=== PATIENT | female | born 1970 | race Caucasian/White ===

== ENCOUNTER 2016-10-19 16:15 | Emergency (ER) | payer MEDICAID ==
[2016-10-19] MEDS ORDERED: HYDROmorphone 1 MG/ML Syringe IVPUSH ONE (16:53)
[2016-10-19] MEDS ORDERED: Ondansetron 4 MG/2 ML SDV IVPUSH ONE (16:54)
[2016-10-19] MEDS ORDERED: Sodium Chloride 0.9% 1,000 ML IV SCH (17:00)
[2016-10-19] MEDS ORDERED: Sodium Chloride 0.9% 10 ML Syringe FLUSH PRN (17:46)
[2016-10-19] MEDS ORDERED: Iopamidol 612 MG/ML 150 ML Bottle IV PRN (17:46)
[2016-10-19 18:44] VITALS: BP 155/74
--- NOTE | 2016-10-19 19:40 | EDM.PDOC ---
ED HPI GI/ABDOMINAL - General Chief Complaint: Abdominal Pain Stated Complaint: ILLNESS Time Seen by Provider: 10/19/16 16:50 Source: Reports: Patient, Family, RN notes reviewed History Limitations: Reports: No limitations - History of Present Illness INITIAL COMMENTS - FREE TEXT/NARRATIVE: Patient originally seen by Dr. Overton for evaluation when she presented emergency department I took over care at 1800, she states that she had epigastric pain approximately one hour after eating has had pain now for 4 hours was provided half milligram of Dilaudid which did provide relief for her she has a history of initially gastric sleeve and duodenal switch surgery please see Dr. Overton's note for details on H&P, - Related Data Allergies/ADRs: Allergies Allergy/AdvReac Type Severity Reaction Status Date / Time cyclobenzaprine HCl Allergy Hives Verified 09/20/13 11:01 [From Flexeril] hydrocodone bitartrate Allergy Itching Verified 09/20/13 11:01 [From Vicodin] Home Meds: Home Meds Gabapentin [Neurontin] 300 mg PO BID 04/07/13 [History] DULoxetine [Cymbalta] 30 mg PO DAILY 10/19/16 [History] DULoxetine [Cymbalta] 60 mg PO DAILY 10/19/16 [History] Estradiol 0.5 mg PO DAILY 10/19/16 [History] HYDROmorphone HCl [Dilaudid] 2 mg PO Q3HR 10/19/16 [History] Meloxicam [Mobic] 15 mg PO DAILY 10/19/16 [History] Methocarbamol [Robaxin-750] 750 mg PO BID 10/19/16 [History] Rifampin 300 mg PO DAILY 10/19/16 [History] hydrOXYzine HCl [Atarax] 25 mg PO TID 10/19/16 [History] medroxyPROGESTERone [Provera] 10 mg PO DAILY 10/19/16 [History] oxyCODONE 5 mg PO Q3HR PRN 10/19/16 [History] Past Medical History Musculoskeletal History: Reports: Arthritis - Past Surgical History GI Surgical History: Reports: Bariatric procedure Other GI Surgeries/Procedures: GASTRIC SLEEVE 11/2012 Musculoskeletal Surgical History: Reports: Hip replacement Other Musculoskeletal Surgeries/Procedures:: RIGHT HIP REPLACEMENT 08/23/16, CLEAN OUT AND REPLACEMENT 08/25/16,CLOSURE 08/30/16 Social & Family History - Tobacco Use Smoking Status *Q: Never Smoker Second Hand Smoke Exposure: No - Caffeine Use Caffeine Use: Reports: Coffee - Alcohol Use Days Per Week of Alcohol Use: 0 - Recreational Drug Use Recreational Drug Use: No ED ROS GENERAL - Review of Systems Review Of Systems: Unable To Obtain Constitutional: Reports: no symptoms Respiratory: Reports: No Symptoms Cardiovascular: Reports: No symptoms GI/Abdominal: Reports: Abdominal pain, Nausea. Denies: Constipation, Diarrhea, Vomiting ED EXAM, GI/ABD - Physical Exam Exam: See Below Exam Limited By: No limitations General Appearance: alert, WD/WN, no apparent distress Respiratory/Chest: no respiratory distress GI/Abdominal: soft, tenderness (Epigastric region) Course - Vital Signs Last Recorded V/S: Last Vital Signs Temp 96.1 F 10/19/16 16:44 Pulse 86 10/19/16 18:43 Resp 20 10/19/16 18:43 BP 155/74 H 10/19/16 18:43 Pulse Ox 93 L 10/19/16 18:43 - Orders/Labs/Meds Orders: Active Orders 24 hr Category Date Time Status EKG Documentation Completion [RC] ASDIRECTED Care 10/19/16 16:52 Active Ready for Discharge [RC] PER UNIT ROUTINE Care 10/19/16 19:31 Active Abdomen Pelvis w Cont [CT] Stat Exams 10/19/16 16:54 Taken Chest 1V Frontal [CR] Stat Exams 10/19/16 16:51 Taken Sodium Chloride 0.9% [Normal Saline] 1,000 ml Med 10/19/16 17:00 Active IV ASDIRECTED EKG 12 Lead [EK] Stat Ther 10/19/16 16:51 Ordered Medication Orders Sodium Chloride (Normal Saline) 1,000 mls @ 150 mls/hr IV ASDIRECTED VIVIAN Last Admin: 10/19/16 17:20 Dose: 150 mls/hr Labs: Laboratory Tests 10/19/16 10/19/16 10/19/16 Range/Units 16:51 16:51 16:51 WBC 9.0 (4.5-11.0) K/uL RBC 4.23 (3.30-5.50) M/uL Hgb 12.1 (12.0-15.0) g/dL Hct 38.3 (36.0-48.0) % MCV 91 (80-98) fL MCH 29 (27-31) pg MCHC 32 (32-36) % Plt Count 299 (150-400) K/uL Neut % (Auto) 75 H (36-66) % Lymph % (Auto) 15 L (24-44) % [place] % (Auto) 7 H (2-6) % Eos % (Auto) 2 (2-4) % Baso % (Auto) 0 (0-1) % D-Dimer, Quantitative 2320 H (0.0-400.0) ng/mL Sodium 142 (140-148) mmol/L Potassium 3.9 (3.6-5.2) mmol/L Chloride 101 (100-108) mmol/L Carbon Dioxide 30 (21-32) mmol/L Anion Gap 10.9 (5.0-14.0) mmol/L BUN 11 (7-18) mg/dL Creatinine 0.9 (0.6-1.0) mg/dL Est Cr Clr Drug Dosing 72.34 mL/min Estimated GFR (MDRD) > 60 (>60) Glucose 149 H (74-106) mg/dL Lactic Acid (0.4-2.0) mmol/L Calcium 8.9 (8.5-10.1) mg/dL Total Bilirubin 0.8 (0.2-1.0) mg/dL AST 48 H (15-37) U/L ALT 16 (12-78) U/L Alkaline Phosphatase 70 (46-116) U/L Troponin I < 0.017 (0.000-0.056) ng/mL C-Reactive Protein 1.02 H (0.0-0.3) mg/dL Total Protein 7.8 (6.4-8.2) g/dL Albumin 3.4 (3.4-5.0) g/dL Globulin 4.4 H (2.3-3.5) g/dL Albumin/Globulin Ratio 0.8 L (1.2-2.2) Amylase 72 (25-115) U/L Lipase 181 (73-393) U/L Urine Color Urine Appearance Urine pH (4.5-8.0) Ur Specific [place] (1.008-1.030) Urine Protein (NEGATIVE) mg/dL Urine Glucose (UA) (NEGATIVE) mg/dL Urine Ketones (NEGATIVE) mg/dL Urine Occult Blood (NEGATIVE) Urine Nitrite (NEGATIVE) Urine Bilirubin (NEGATIVE) Urine Urobilinogen (NORMAL) mg/dL Ur Leukocyte Esterase (NEGATIVE) Urine RBC (0-5) Urine WBC (0-5) Ur Epithelial Cells Amorphous Sediment Urine Bacteria Urine Mucus 10/19/16 10/19/16 Range/Units 16:51 18:44 WBC (4.5-11.0) K/uL RBC (3.30-5.50) M/uL Hgb (12.0-15.0) g/dL Hct (36.0-48.0) % MCV (80-98) fL MCH (27-31) pg MCHC (32-36) % Plt Count (150-400) K/uL Neut % (Auto) (36-66) % Lymph % (Auto) (24-44) % [place] % (Auto) (2-6) % Eos % (Auto) (2-4) % Baso % (Auto) (0-1) % D-Dimer, Quantitative (0.0-400.0) ng/mL Sodium (140-148) mmol/L Potassium (3.6-5.2) mmol/L Chloride (100-108) mmol/L Carbon Dioxide (21-32) mmol/L Anion Gap (5.0-14.0) mmol/L BUN (7-18) mg/dL Creatinine (0.6-1.0) mg/dL Est Cr Clr Drug Dosing mL/min Estimated GFR (MDRD) (>60) Glucose (74-106) mg/dL Lactic Acid 1.4 (0.4-2.0) mmol/L Calcium (8.5-10.1) mg/dL Total Bilirubin (0.2-1.0) mg/dL AST (15-37) U/L ALT (12-78) U/L Alkaline Phosphatase (46-116) U/L Troponin I (0.000-0.056) ng/mL C-Reactive Protein (0.0-0.3) mg/dL Total Protein (6.4-8.2) g/dL Albumin (3.4-5.0) g/dL Globulin (2.3-3.5) g/dL Albumin/Globulin Ratio (1.2-2.2) Amylase (25-115) U/L Lipase (73-393) U/L Urine Color [place] Urine Appearance Clear Urine pH 5.0 (4.5-8.0) Ur Specific [place] 1.020 (1.008-1.030) Urine Protein Negative (NEGATIVE) mg/dL Urine Glucose (UA) Normal (NEGATIVE) mg/dL Urine Ketones 15 H (NEGATIVE) mg/dL Urine Occult Blood Negative (NEGATIVE) Urine Nitrite Negative (NEGATIVE) Urine Bilirubin Small (NEGATIVE) Urine Urobilinogen Normal (NORMAL) mg/dL Ur Leukocyte Esterase Negative (NEGATIVE) Urine RBC 0-5 (0-5) Urine WBC 0-5 (0-5) Ur Epithelial Cells Many Amorphous Sediment Not seen Urine Bacteria Few Urine Mucus Few Meds: Medications Generic Name Dose Route Start Last Admin Trade Name Freq PRN Reason Stop Dose Admin Sodium Chloride 1,000 mls @ 150 mls/hr 10/19/16 17:00 10/19/16 17:20 Normal Saline IV 150 mls/hr ASDIRECTED VIVIAN Administration Discontinued Medications Generic Name Dose Route Start Last Admin Trade Name Freq PRN Reason Stop Dose Admin Hydromorphone HCl 0.5 mg 10/19/16 16:53 10/19/16 17:20 Dilaudid IVPUSH 10/19/16 16:54 0.5 mg ONETIME ONE Administration Sodium Chloride 70 mls @ 3 mls/sec 10/19/16 17:46 10/19/16 18:00 Normal Saline IV 10/19/16 17:47 3 mls/sec ASDIRECTED ONE Administration Iopamidol 150 ml 10/19/16 17:46 10/19/16 18:00 Isovue-300 (61%) IV 10/19/16 17:47 150 ml . DIRECTED PRN Administration RADIOLOGY EXAM Ondansetron HCl 4 mg 10/19/16 16:54 10/19/16 17:20 Zofran IVPUSH 10/19/16 16:55 4 mg ONETIME ONE Administration Sodium Chloride 10 ml 10/19/16 17:46 10/19/16 18:00 Saline Flush FLUSH 10/19/16 17:47 10 ml . DIRECTED PRN Administration [id number] EXAM Departure - Departure Time of Disposition: 19:40 Disposition: Home, Self-Care 01 Condition: good Clinical Impression: Cholecystitis Referrals: Rakesh Castaneda MD [Physician] - (luisa november 05 ) Additional Instructions: Please keep your followup appointment with Dr. Castaneda, call return to the ED with worsening of symptoms - Assessment/Plan Plan: Assessment Acuity = acute Site and laterality = epigastric pain complicated patient with known history of gastric bypass surgery duodenal switch Etiology = suspicious for gallbladder involvement Manifestations = pain, nausea Location of injury = home Lab values = CBC unremarkable, d-dimer elevated at [id number] gout he has CRP mildly elevated 1.[address] scan of the abdomen shows markedly dilated gallbladder mild amount of fluid surrounding the gallbladder gallstones are present probably consistent with acute cholecystitis Plan I did consult Dr. Castaneda who kindly evaluated the patient in the emergency department she is set up for a cholecystectomy as an outpatient this following week Patient was in agreement with the plan all questions were answered, they were instructed to return to the emergency department or call for worsening symptoms. This note was dictated using [employer] voice recognition software please call with any questions.
--- NOTE | 2016-10-21 10:09 | CR ---
Chest 1V Frontal INDICATION: Left upper quadrant pain FINDINGS: Right PICC line with tip overlying the upper SVC. Heart size is accentuated by portable AP technique. AP portable chest x-ray otherwise negative.
--- NOTE | 2016-10-21 11:42 | CONS ---
DATE OF SERVICE: 10/20/2016 REFERRING PHYSICIAN: CONSULTING PHYSICIAN: Rakesh Castaneda MD REASON FOR CONSULTATION: Abdominal pain. HISTORY OF PRESENT ILLNESS: This is a pleasant 46-year-old female, who developed epigastric/right upper quadrant abdominal pain after eating greasy/fatty foods. This is an ongoing problem for her. This is the 2nd or 3rd attack. She has pain in the epigastric/right upper quadrant, which is 3 to 4/10, but has subsequently improved. PAST MEDICAL HISTORY: Chronic pain syndrome, bariatric status. The patient underwent a sleeve in 2012 performed by myself and converted to a duodenal switch. Gastroesophageal reflux disease, ACL tear, knee pain, depression, total hip repair, medial meniscus tear, obesity, chondromalacia of the patella, personality disorder, left knee scope. PAST SURGICAL HISTORY: As above. The patient also underwent a right total hip which was also infected recently (September 2016). SOCIAL HISTORY: She does not smoke. REVIEW OF SYSTEMS: GENERAL: The patient feels well comparatively. HEENT: No symptoms. CARDIOVASCULAR: No chest pain. RESPIRATORY: No shortness of breath. GASTROINTESTINAL: As above. GENITOURINARY: No dysuria. NEUROLOGIC: Alert and oriented x3. PSYCH: No gross depression. The remainder review of systems is reviewed and is negative. PHYSICAL EXAMINATION: VITAL SIGNS: Stable. HEENT: Pupils are equal. NECK: Supple. CARDIOVASCULAR: Regular rhythm and rate. RESPIRATORY: Lungs are clear to consultation bilaterally. ABDOMEN: Bowel sounds positive. Pain with palpation in the right upper quadrant/ epigastric region. EXTREMITIES: Full range of motion. Strength 5/5. NEUROLOGIC: Oriented x3. PSYCH: No gross depression. IMAGING: I did review the CT scan, which shows cholelithiasis and cholecystitis. ASSESSMENT AND PLAN: Cholecystitis. PLAN: The patient definitely needs her gallbladder out as she has right upper quadrant abdominal pain associated with diet and CT noted inflammation. However, this will be delayed until her infected hip is subsequently resolved. This will decrease her surgical risk. The plan will be, the patient will follow up on November [address] Dc for evaluation in the clinic. We did discuss the surgical process to a laparoscopic and open. The risks, benefits, alternatives, and limitations, including, but not limited to infection, bleeding, and perforation along with common bile duct injury, cystic duct leaks. She understands these risks and wishes to proceed. Rakesh Castaneda MD /[id number]
== END 2016-10-19 19:53 | disposition home or self-care (01) ==
LOC: JP.ED 16:15
DX: K81.9 Cholecystitis, unspecified (principal); Z88.5 Allergy status to narcotic agent; Z88.8 Allergy status to other drugs, medicaments and biological substances; Z79.899 Other long term (current) drug therapy; Z98.84 Bariatric surgery status; Z96.641 Presence of right artificial hip joint
CPT/HCPCS: 36415; 71010; 74177; 80053; 81001; 82150; 83605; 83690; 84484; 85025; 85379; 86140; 93005; 96361; 96374; 96375; 99285; J1170; J2405; J7030; J7040; J7050

== ENCOUNTER 2017-01-03 06:52 | Day surgery (SDC) | payer MEDICAID ==
[~2017-01-03 06:52] MED LIST: Bupivacaine 0.5%/EPINEPHrine 1:200,000 50 ML MDV ONE
[2017-01-03] MEDS ORDERED: Lidocaine 1% 50 ML MDV ONE (06:53)
[2017-01-03] MEDS ORDERED: Sodium Chloride 0.9% 1,000 ML IV SCH (07:30)
[2017-01-03] MEDS ORDERED: ceFAZolin 2 GM in Premix Bag 1 BAG IV ONE (08:15)
[2017-01-03] MEDS ORDERED: metroNIDAZOLE/Normal Saline 500 MG in Premix Bag 1 BAG IV ONE (08:15)
[2017-01-03] MEDS ORDERED: Succinylcholine/Normal Saline 200 MG/10 ML Syringe ONE (08:29)
[2017-01-03] MEDS ORDERED: Neostigmine Methylsulfate 1 MG/ML 5 ML Syringe ONE (08:29)
[2017-01-03] MEDS ORDERED: Rocuronium 50 MG/5 ML Vial ONE (08:29)
[2017-01-03] MEDS ORDERED: fentaNYL 250 MCG/5 ML SDV ONE (08:29)
[2017-01-03] MEDS ORDERED: Dexamethasone 4 MG/ML SDV ONE (08:29)
[2017-01-03] MEDS ORDERED: Ondansetron 4 MG/2 ML SDV ONE (08:29)
[2017-01-03] MEDS ORDERED: Propofol 200 MG/20 ML SDV ONE (08:29)
[2017-01-03] MEDS ORDERED: Ketorolac 60 MG/2 ML SDV ONE (10:03)
[2017-01-03] MEDS ORDERED: Bisacodyl 5 MG Tab PO PRN (10:19)
[2017-01-03] MEDS ORDERED: Docusate Sodium 100 MG Cap PO PRN (10:19)
[2017-01-03] MEDS ORDERED: Zolpidem 5 MG Tab PO PRN (10:19)
[2017-01-03] MEDS ORDERED: Promethazine 25 MG/ML SDV IM PRN (10:19)
[2017-01-03] MEDS ORDERED: diphenhydrAMINE 50 MG/ML SDV IVPUSH PRN (10:19)
[2017-01-03] MEDS ORDERED: Benzocaine/Cetylpyridinium/Menthol Lozenge MUCMEM PRN (10:19)
[2017-01-03] MEDS: Acetaminophen/oxyCODONE 325-10 MG Tab PO PRN ×3 (11:50→20:16)
[2017-01-04] MEDS: Acetaminophen/oxyCODONE 325-10 MG Tab PO PRN ×3 (00:15→09:45)
[2017-01-04 07:34] VITALS: BP 110/59
--- NOTE | 2017-01-05 10:02 | OR ---
DATE OF PROCEDURE: 01/03/2017 PROCEDURE PERFORMED: Laparoscopic cholecystectomy. PREOPERATIVE DIAGNOSES: 1. Cholelithiasis. 2. Cholecystitis. POSTOPERATIVE DIAGNOSES: 1. Cholelithiasis. 2. Cholecystitis. COMPLICATIONS: None. DRYING OVEN TENDER: None. ANESTHESIA: General/local. INDICATIONS FOR PROCEDURE: A 46-year-old female with clinically diagnosed cholelithiasis, cholecystitis. The risks, benefits, alternatives, and limitations, including, but not limited to, bleeding, infection, injury to abdominal structures such as bowel, bladder were explained to the patient. We also discussed the possibility of cystic duct leaks, common bile duct injuries, and open surgery. The patient understands these risks and wished to proceed. PROCEDURE IN DETAIL: The patient was placed in supine position. A supraumbilical curvilinear incision was made. A Veress needle was used to enter the abdomen without abnormality. The drop test was performed and the abdomen was subsequently insufflated. This was followed by an Optiview trocar which was entered without abnormality. An additional 10 and two 5 mm ports would also be entered under direct visualization. The cephalad was checked. The gallbladder was checked. The infundibulum was retracted superiorly, and the fundus was retracted inferolaterally. The patient was known to have very dense adhesions noted within the gallbladder fossa. Blunt dissection was performed. The cystic duct was possibly larger than a clip, and therefore, a blue load stapler would be used to transect the duct. Prior to this, a "clear view" of the gallbladder was obtained with a single pulsatile structure into the gallbladder, and a single non-pulsatile structure in the gallbladder. After transection of this associated structures, the remaining 1/3 of the gallbladder was removed off the gallbladder bed without difficulty. Minimal bleeding of the liver bed was controlled with electrocautery. The transection sites were inspected without abnormality. There was no evidence of bile leak. This was irrigated with approximately 500 mL of normal saline. The liver bed was reinspected for 1 minute for evidence of venous bleeding and low pressure and there was none. The patient was turned to remove the maximal amount of fluid. The entry site was inspected for enterotomy which there was none. The air was removed. The wounds were closed with 3-0 Vicryl and 4-0 Vicryl in interrupted running fashion after local anesthetic was applied and Dermabond was placed. The patient tolerated the procedure well. Rakesh Castaneda MD /[id number]
--- NOTE | 2017-01-05 10:43 | PN ---
DATE OF SERVICE: 01/04/2017 The patient underwent laparoscopic cholecystectomy yesterday per Dr. Castaneda. She was tentatively planned to be discharged home yesterday evening, but felt more comfortable staying overnight. She will be discharged home today with continuation of the discharge orders per Dr. Castaneda. She has had some drainage from one of the NANCY drain sites, and she will be given some gauze for that along with an extra binder in view that the present binder might get dirty. Paulo Hawley MD /[id number]
== END 2017-01-04 10:48 | disposition home or self-care (01) ==
LOC: JP.SDS 06:52 → JP.2SS 11:15 → JP.SDS 01-04 10:48
PROVIDERS: ATTEND Surgery
DX: K80.10 Calculus of gallbladder with chronic cholecystitis without obstruction (principal); K21.9 Gastro-esophageal reflux disease without esophagitis; E66.9 Obesity, unspecified; E11.9 Type 2 diabetes mellitus without complications; Z88.8 Allergy status to other drugs, medicaments and biological substances; Z98.84 Bariatric surgery status; Z98.890 Other specified postprocedural states; F32.9 Major depressive disorder, single episode, unspecified; Z79.899 Other long term (current) drug therapy
CPT/HCPCS: 36415; 47562; 80053; 85025; 85027; A9270; J0690; J1100; J1885; J2405; J2704; J3010; J7040; 88304

== ENCOUNTER 2018-04-16 09:53 | Emergency (ER) | payer MEDICAID ==
--- NOTE | 2018-04-16 10:29 | EDM.PDOC ---
ED HPI GENERAL MEDICAL PROBLEM - General Chief Complaint: Chest Pain Stated Complaint: MEDICAL [facility]IA [facility] Time Seen by Provider: 04/16/18 10:29 Source of Information: Reports: Patient History Limitations: Reports: No Limitations - History of Present Illness INITIAL COMMENTS - FREE TEXT/NARRATIVE: pt arrived by ambulance with rt sided chest pain The pain starts in her rt upper arm and goes to the rt chest. She has a past history of a infected pick line and she was treated for mrsa at that time . She is concerned about the fact that this pain is traveling in the same pattern as the pick line. . Onset: Today, Gradual Duration: Hour(s):, Getting Worse Location: Reports: Chest Associated Symptoms: Reports: Chest Pain, Other (pt was concerned about the recurrent infection in this area. ) Right Middle Chest Pain Score (Numeric/FACES): 4 - Related Data Allergies Allergy/AdvReac Type Severity Reaction Status Date / Time cyclobenzaprine HCl Allergy Hives Verified 01/03/17 07:23 [From Flexeril] Home Meds: Home Meds Gabapentin [Neurontin] 300 mg PO BID 04/07/13 [History] Meloxicam [Mobic] 15 mg PO DAILY 10/19/16 [History] Methocarbamol [Robaxin-750] 750 mg PO BID 10/19/16 [History] hydrOXYzine HCl [Atarax] 25 mg PO TID PRN 10/19/16 [History] medroxyPROGESTERone [Provera] 10 mg PO ASDIRECTED 10/19/16 [History] LORazepam 0.5 mg PO QID PRN 01/01/17 [History] cefaDROXil [Cefadroxil] 500 mg PO BID 01/01/17 [History] Past Medical History HEENT History: Reports: Allergic Rhinitis, Other (See Below) Other HEENT History: environmental allergies Cardiovascular History: Reports: Arrhythmia, Heart Murmur, Other (See Below) Other Cardiovascular History: heart murmur as child Respiratory History: Reports: Asthma, Bronchitis, Recurrent Gastrointestinal History: Reports: Cholelithiasis [employer] History: Reports: , Spontaneous Musculoskeletal History: Reports: Back Pain, Chronic, Fibromyalgia Neurological History: Reports: Migraines Psychiatric History: Reports: Anxiety, Depression Endocrine/Metabolic History: Reports: Diabetes, Type II, Obesity/BMI 30+ - Infectious Disease History Infectious Disease History: Reports: MRSA, Other (See Below) Other Infectious Disease History: mssa - Past Surgical History HEENT Surgical History: Reports: Oral Surgery GI Surgical History: Reports: Bariatric Procedure Female Surgical History: Reports: D&C Musculoskeletal Surgical History: Reports: Hip Replacement, Other (See Below) Other Musculoskeletal Surgeries/Procedures:: left knee ACL reconstruction Social & Family History - Tobacco Use Smoking Status *Q: Never Smoker - Caffeine Use Caffeine Use: Reports: Coffee, Soda, Tea - Recreational Drug Use Recreational Drug Use: No ED ROS GENERAL - Review of Systems Review Of Systems: See Below Constitutional: Reports: Other (pain in the rt upper arm and in the rt upper chest. ) HEENT: Reports: No Symptoms Respiratory: Reports: Other (pt has pain in her rt upper chest area. ) Cardiovascular: Reports: No Symptoms Endocrine: Reports: No Symptoms GI/Abdominal: Reports: No Symptoms : Reports: No Symptoms Musculoskeletal: Reports: No Symptoms Skin: Reports: No Symptoms ED EXAM, GENERAL - Physical Exam Exam: See Below Free Text/Narrative:: Pt arrived with pain in her rt upper chest and in the rt upper arm. Exam Limited By: No Limitations General Appearance: Alert, Mild Distress Ears: Normal TMs Nose: Normal Inspection Throat/Mouth: Normal Inspection Head: Atraumatic Neck: Normal Inspection Respiratory/Chest: No Respiratory Distress, Other (pt is having pain in rt upper chest. She is not tender to palpate. ) Cardiovascular: Regular Rate, Rhythm GI/Abdominal: Soft, Non-Tender (Female) Exam: Deferred Rectal (Female) Exam: Deferred Back Exam: Normal Inspection Extremities: Normal Inspection, Other ( No redness on the rt upper arm. ) Neurological: Alert, Oriented, Normal Cognition Course - Vital Signs Last Recorded V/S: Last Vital Signs Temp 37.3 C 04/16/18 10:07 Pulse 72 04/16/18 11:10 Resp 11 L 04/16/18 11:10 BP 135/60 04/16/18 11:10 Pulse Ox 96 04/16/18 11:10 - Orders/Labs/Meds Labs: Laboratory Tests 04/16/18 04/16/18 04/16/18 Range/Units 10:34 10:34 10:35 WBC 4.4 L (4.5-11.0) K/uL RBC 4.22 (3.30-5.50) M/uL Hgb 12.6 (12.0-15.0) g/dL Hct 38.5 (36.0-48.0) % MCV 91 (80-98) fL MCH 30 (27-31) pg MCHC 33 (32-36) % Plt Count 189 (150-400) K/uL Neut % (Auto) 69 H (36-66) % Lymph % (Auto) 23 L (24-44) % [place] % (Auto) 6 (2-6) % Eos % (Auto) 2 (2-4) % Baso % (Auto) 0 (0-1) % Sodium 142 (140-148) mmol/L Potassium 3.8 (3.6-5.2) mmol/L Chloride 107 (100-108) mmol/L Carbon Dioxide 25 (21-32) mmol/L Anion Gap 10.5 (5.0-14.0) mmol/L BUN 7 (7-18) mg/dL Creatinine 1.0 (0.6-1.0) mg/dL Est Cr Clr Drug Dosing 61.23 mL/min Estimated GFR (MDRD) 59 L (>60) Glucose 123 H (74-106) mg/dL Calcium 7.9 L (8.5-10.1) mg/dL Total Bilirubin 0.3 (0.2-1.0) mg/dL AST 22 (15-37) U/L ALT 18 (12-78) U/L Alkaline Phosphatase 51 (46-116) U/L Troponin I < 0.017 (0.000-0.056) ng/mL Total Protein 6.4 (6.4-8.2) g/dL Albumin 2.8 L (3.4-5.0) g/dL Globulin 3.6 H (2.3-3.5) g/dL Albumin/Globulin Ratio 0.8 L (1.2-2.2) Urine Color Yellow Urine Appearance Slightly cloudy Urine pH 5.0 (4.5-8.0) Ur Specific [place] 1.005 L (1.008-1.030) Urine Protein Negative (NEGATIVE) mg/dL Urine Glucose (UA) Normal (NEGATIVE) mg/dL Urine Ketones Negative (NEGATIVE) mg/dL Urine Occult Blood Negative (NEGATIVE) Urine Nitrite Negative (NEGATIVE) Urine Bilirubin Negative (NEGATIVE) Urine Urobilinogen Normal (NORMAL) mg/dL Ur Leukocyte Esterase Small (NEGATIVE) Urine RBC Not seen (0-5) Urine WBC 5-10 H (0-5) Ur Epithelial Cells Few Amorphous Sediment Not seen Urine Bacteria Not seen Urine Mucus Not seen Meds: Medications Discontinued Medications Generic Name Dose Route Start Last Admin Trade Name Freq PRN Reason Stop Dose Admin Ketorolac Tromethamine 60 mg 04/16/18 12:23 Toradol IM 04/16/18 12:24 ONETIME ONE - Re-Assessments/Exams Free Text/Narrative Re-Assessment/Exam: 04/16/18 12:38 pt had a chest xray which was neg. Her wbc was neg. Her trop was normal. no acute finding s in the ekg. Departure - Departure Time of Disposition: 12:24 Disposition: Home, Self-Care 01 Condition: Fair Clinical Impression: Right-sided chest pain Referrals: Senthil Oh MD [Primary Care Provider] - Forms: ED Department Discharge Care Plan Goals: moist heat to rt chest, encourage deep breathing.norco 5/325 q6h prn for pain # 6, no work today.
--- NOTE | 2018-04-16 11:19 | CR ---
Chest 2V HISTORY: pain in rt chest. COMPARISON: 10/19/2016 FINDINGS: Lungs appear clear and normally aerated. Heart size is upper limits of normal. No hilar or mediastina l abnormality is seen. No vascular redistribution or pleural fluid can be seen. Bony structures and s oft tissues are unremarkable. IMPRESSION: Heart size is upper limits of normal. No acute chest abnormality or significant interval change santos red with 10/19/2016.
[2018-04-16 11:32] VITALS: BP 135/60
[2018-04-16] MEDS ORDERED: Ketorolac 60 MG/2 ML SDV IM ONE (12:23)
== END 2018-04-16 12:44 | disposition home or self-care (01) ==
LOC: JP.ED 09:53
DX: R07.9 Chest pain, unspecified (principal); E11.9 Type 2 diabetes mellitus without complications; Z88.8 Allergy status to other drugs, medicaments and biological substances; Z79.899 Other long term (current) drug therapy
CPT/HCPCS: 36415; 71046; 71046-26; 80053; 81001; 84484; 85025; 96372; 99285-25; J1885

== ENCOUNTER 2020-01-12 20:13 | Emergency (ER) | payer MEDICAID ==
--- NOTE | 2020-01-12 20:34 | EDM.PDOC ---
<Deepika Jones - Last Filed: 01/12/20 20:34> ED HPI GENERAL MEDICAL PROBLEM - General Chief Complaint: Respiratory Problem Stated Complaint: COUGH Time Seen by Provider: 01/12/20 20:34 Source of Information: Reports: Patient - Related Data Allergies Allergy/AdvReac Type Severity Reaction Status Date / Time cyclobenzaprine HCl Allergy Hives Verified 01/12/20 21:05 [From Flexeril] Home Meds: Home Meds Gabapentin [Neurontin] 600 mg PO TID 04/07/13 [History] hydrOXYzine HCl [Atarax] 25 mg PO TID PRN 10/19/16 [History] cefaDROXiL [Cefadroxil] 500 mg PO BID 01/01/17 [History] Albuterol Sulfate [Proair Respiclick] 2 puff IH QID PRN 01/12/20 [History] Escitalopram [Lexapro] 20 mg PO DAILY 01/12/20 [History] Eszopiclone 1 tab PO BEDTIME 01/12/20 [History] Etonogestrel [Nexplanon] 1 dose IMPLANT ASDIRECTED 01/12/20 [History] Viking Carbonate 1 cap PO BEDTIME 01/12/20 [History] Propranolol [Inderal] 20 mg PO BID 01/12/20 [History] QUEtiapine Fumarate [Quetiapine Fumarate] 200 mg PO BEDTIME 01/12/20 [History] QUEtiapine [SEROquel] 0.05 - 1 tab PO ASDIRECTED PRN 01/12/20 [History] Rizatriptan Benzoate [Rizatriptan] 1 tab PO ASDIRECTED PRN 01/12/20 [History] lamoTRIgine 1 tab PO DAILY 01/12/20 [History] Past Medical History HEENT History: Reports: Allergic Rhinitis, Other (See Below) Other HEENT History: environmental allergies Cardiovascular History: Reports: Arrhythmia, Heart Murmur, Other (See Below) Other Cardiovascular History: heart murmur as child Respiratory History: Reports: Asthma, Bronchitis, Recurrent Gastrointestinal History: Reports: Cholelithiasis 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: , 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 Musculoskeletal History: Reports: Back Pain, Chronic, Fibromyalgia Neurological History: Reports: Migraines Psychiatric History: Reports: Anxiety, Depression Endocrine/Metabolic History: Reports: Diabetes, Type II, Obesity/BMI 30+ - Infectious Disease History Infectious Disease History: Reports: MRSA, Other (See Below) Other Infectious Disease History: mssa - Past Surgical History HEENT Surgical History: Reports: Oral Surgery GI Surgical History: Reports: Bariatric Procedure Female Surgical History: Reports: D&C Musculoskeletal Surgical History: Reports: Hip Replacement, Other (See Below) Other Musculoskeletal Surgeries/Procedures:: left knee ACL reconstruction Social & Family History - Family History Family Medical History: Noncontributory - Caffeine Use Caffeine Use: Reports: Coffee, Soda Course - Vital Signs Last Recorded V/S: Last Vital Signs Temp 97.1 F 01/12/20 21:07 Pulse 82 01/12/20 21:07 Resp 18 01/12/20 21:07 BP 152/83 H 01/12/20 21:07 Pulse Ox 97 01/12/20 21:07 - Orders/Labs/Meds Orders: Active Orders 24 hr Category Date Time Status RT Aerosol Therapy [RC] ASDIRECTED Care 01/12/20 21:48 Active Chest 2V [CR] Stat Exams 01/12/20 21:49 Taken CULTURE STREP A CONFIRMATION [RM] Stat Lab 01/12/20 22:00 Results STREP SCRN A RAPID W CULT CONF [RM] Stat Lab 01/12/20 22:00 Results Labs: Laboratory Tests 01/12/20 Range/Units 21:49 WBC 6.0 (4.5-11.0) K/uL RBC 4.92 (3.30-5.50) M/uL Hgb 14.7 D (12.0-15.0) g/dL Hct 45.5 (36.0-48.0) % MCV 93 (80-98) fL MCH 30 (27-31) pg MCHC 32 (32-36) % Plt Count 212 (150-400) K/uL Neut % (Auto) 64 (36-66) % Lymph % (Auto) 24 (24-44) % [place] % (Auto) 9 H (2-6) % Eos % (Auto) 2 (2-4) % Baso % (Auto) 1 (0-1) % Meds: Medications Discontinued Medications Generic Name Dose Route Start Last Admin Trade Name Freq PRN Reason Stop Dose Admin Albuterol/Ipratropium 3 ml 01/12/20 21:48 01/12/20 23:26 Duoneb 3.0-0.5 Mg/3 Ml NEB 01/12/20 21:49 Not Given ONETIME ONE Departure - Departure Disposition: Home, Self-Care 01 Clinical Impression: Bronchitis, acute - Discharge Information Instructions: Acute Bronchitis, Adult, [id number] Referrals: Alexandria Trevizo CNM [Primary Care Provider] - Forms: ED Department Discharge Additional Instructions: Finish all your antibiotic even if you start to feel better. Use the cough syrup at night to help you sleep but not during the day as you want to cough and clear your sputum. Make sure you stay hydrated to help with your cough and sputum. Your x-ray did not show any evidence of pneumonia. Use you albuterol inhaler three to four times a day over the next 3 to 4 days to help with the cough. Follow up with your PCP if not better in 3-5 days. Call or come back to the ER with any worsening of symptoms, chest pains, difficulty catching your breath, or any other concerns. Sepsis Event Note (ED) - Focused Exam Vital Signs: Vital Signs Temp Pulse Resp BP Pulse Ox 01/12/20 21:07 97.1 F 82 18 152/83 H 97 01/12/20 20:41 97.1 F 82 18 152/83 H 97 - My Orders Last 24 Hours: My Active Orders 01/12/20 21:48 RT Aerosol Therapy [RC] ASDIRECTED 01/12/20 21:49 Chest 2V [CR] Stat 01/12/20 22:00 CULTURE STREP A CONFIRMATION [RM] Stat STREP SCRN A RAPID W CULT CONF [RM] Stat - Assessment/Plan Last 24 Hours: My Active Orders 01/12/20 21:48 RT Aerosol Therapy [RC] ASDIRECTED 01/12/20 21:49 Chest 2V [CR] Stat 01/12/20 22:00 CULTURE STREP A CONFIRMATION [RM] Stat STREP SCRN A RAPID W CULT CONF [RM] Stat <Ester Cuenca - Last Filed: 01/13/20 02:30> ED HPI GENERAL MEDICAL PROBLEM - General Source of Information: Reports: Patient, RN History Limitations: Reports: No Limitations - History of Present Illness INITIAL COMMENTS - FREE TEXT/NARRATIVE: Lelia is a 49 yo female that comes to the ED with a 2 days history of a productive cough getting worse in the last 2 hours. She describes it as constant and aggravates when she is moving around. Her sputum is creamy with some yellow and a streak of blood. She endorses a right sided throat tickle. Lelia has a history of asthma and recurrent bronchitis. Denies any fever. States that she has some 2/10 chest pressure that developed with in the past few minutes Onset: Gradual Onset Date: 01/10/20 Duration: Day(s): (2) Location: Reports: Chest Improves with: Reports: None Worsens with: Reports: Movement Associated Symptoms: Reports: Cough ED ROS GENERAL - Review of Systems Review Of Systems: See Below Constitutional: Reports: No Symptoms HEENT: Reports: Throat Pain Respiratory: Reports: Cough, Sputum Cardiovascular: Reports: Other (chest pressure) Endocrine: Reports: No Symptoms GI/Abdominal: Reports: No Symptoms : Reports: No Symptoms Musculoskeletal: Reports: No Symptoms Skin: Reports: No Symptoms Neurological: Reports: No Symptoms Hematologic/Lymphatic: Reports: No Symptoms Immunologic: Reports: No Symptoms ED EXAM, GENERAL - Physical Exam Exam: See Below Exam Limited By: No Limitations General Appearance: Alert, No Apparent Distress Eye Exam: Bilateral Eye: Normal Inspection Ears: Normal External Exam, Normal Canal, Normal TMs Nose: Normal Inspection, Normal Mucosa Throat/Mouth: Normal Inspection, Normal Teeth, Other (tonsil at 0 bilat. mild erythema in posterior pharynx. no edema) Head: Atraumatic, Normocephalic Neck: Normal Inspection, Non-Tender Respiratory/Chest: No Respiratory Distress, Lungs Clear, Chest Non-Tender, Decreased Breath Sounds (bases) Cardiovascular: Regular Rate, Rhythm Peripheral Pulses: 2+: Radial (L), Radial (R) GI/Abdominal: Normal Bowel Sounds, Soft, Tender (epigastric region) (Female) Exam: Deferred Back Exam: Normal Inspection Extremities: Normal Inspection, Non-Tender, No Pedal Edema, Normal Capillary Refill Neurological: Alert, Oriented, Normal Cognition Psychiatric: Normal Affect Skin Exam: Warm, Dry, Intact Lymphatic: Adenopathy (tenderness to bilat tonsillar lymph nodes. no enlargement present) Course - Orders/Labs/Meds Labs: Laboratory Tests 01/12/20 Range/Units 21:49 WBC 6.0 (4.5-11.0) K/uL RBC 4.92 (3.30-5.50) M/uL Hgb 14.7 D (12.0-15.0) g/dL Hct 45.5 (36.0-48.0) % MCV 93 (80-98) fL MCH 30 (27-31) pg MCHC 32 (32-36) % Plt Count 212 (150-400) K/uL Neut % (Auto) 64 (36-66) % Lymph % (Auto) 24 (24-44) % [place] % (Auto) 9 H (2-6) % Eos % (Auto) 2 (2-4) % Baso % (Auto) 1 (0-1) % - Radiology Interpretation Free Text/Narrative:: ER read of chest x-ray does not show any acute findings. Radiology reading pending. Departure - Departure Time of Disposition: 22:41 Condition: Good - Discharge Information *PRESCRIPTION DRUG MONITORING PROGRAM REVIEWED*: No *COPY OF PRESCRIPTION DRUG MONITORING REPORT IN PATIENT TIFFANIE: No - Assessment/Plan Plan: plan to discharge home. start her on a zpack and cough syrup with codeine. prescriptions per [facility].
[2020-01-12 20:43] VITALS: BP 152/83; PULSE 82
[2020-01-12] MEDS: Albuterol/Ipratropium 3.0-0.5 MG/3 ML Neb Soln NEB ONE ×2 (22:05→23:26)
--- NOTE | 2020-01-13 08:57 | CR ---
CHEST: 2 view CLINICAL HISTORY:Blood in sputum COMPARISON:2018 FINDINGS: The heart is enlarged. Pulmonary vascularity is mildly cephalized. No infiltrate effusion or pneumothorax seen Impression: Mild cardiomegaly with mild vascular congestion may represent pulmonary venous hypertension.
== END 2020-01-12 23:11 | disposition home or self-care (01) ==
LOC: JP.ED 20:13
DX: J20.9 Acute bronchitis, unspecified (principal); J45.909 Unspecified asthma, uncomplicated; F41.9 Anxiety disorder, unspecified; F32.9 Major depressive disorder, single episode, unspecified; E11.9 Type 2 diabetes mellitus without complications; E66.9 Obesity, unspecified; Z68.41 Body mass index [BMI] 40.0-44.9, adult
CPT/HCPCS: 36415; 71046; 71046-26; 85025; 87081; 87880-QW; 99283-25; J7620-GY

== ENCOUNTER 2020-10-15 12:29 | Emergency (ER) | payer MEDICAID ==
[2020-10-15 12:50] VITALS: BP 149/72; PULSE 92
--- NOTE | 2020-10-15 13:07 | EDM.PDOC ---
ED HPI GENERAL MEDICAL PROBLEM - General Chief Complaint: Lower Extremity Injury/Pain Stated Complaint: SLIPPED ON ICE, FELL ON LT SIDE, KNEE AND HIP PAIN Time Seen by Provider: 10/15/20 12:45 Source of Information: Reports: Patient History Limitations: Reports: No Limitations - History of Present Illness INITIAL COMMENTS - FREE TEXT/NARRATIVE: 50-year-old female with previous right hip surgery, and left knee surgery presents after slipping and falling while going downstairs within the last hour. She has an abrasion on the anterior aspect of the left knee, and significant pain in the left hip and left buttock area. She just wants to make sure she has nothing fractured, it hurts to bear weight. Onset: Sudden Duration: Hour(s): (1 hour ago) Location: Reports: Pelvis (Left side), Lower Extremity, Left Associated Symptoms: Reports: No Other Symptoms Left Hip Pain Score (Numeric/FACES): 9 - Related Data Allergies Allergy/AdvReac Type Severity Reaction Status Date / Time cyclobenzaprine HCl Allergy Hives Verified 10/15/20 12:49 [From Flexeril] Home Meds: Home Meds Gabapentin [Neurontin] 600 mg PO TID 04/07/13 [History] hydrOXYzine HCl [Atarax] 25 mg PO TID PRN 10/19/16 [History] cefaDROXiL [Cefadroxil] 500 mg PO BID 01/01/17 [History] Eszopiclone 2 mg PO BEDTIME 01/12/20 [History] Rizatriptan Benzoate [Rizatriptan] 1 tab PO ASDIRECTED PRN 01/12/20 [History] lamoTRIgine 200 mg PO DAILY 01/12/20 [History] Amoxicillin 2,000 mg PO ASDIRECTED 05/17/20 [History] Aspirin/Acetaminophen/Caffeine [Headache 250-250-65 mg Tablet] 1 each PO ASDIRECTED 05/17/20 [History] Diclofenac Sodium 1 applic TOP QID 05/17/20 [History] Nystatin [Nystatin Crm] 1 applic TOP BID 05/17/20 [History] busPIRone [Buspar] 15 mg PO TID 10/15/20 [History] Past Medical History HEENT History: Reports: Allergic Rhinitis, Impaired Vision, Other (See Below) Other HEENT History: environmental allergies Cardiovascular History: Reports: Arrhythmia, Heart Murmur Other Cardiovascular History: heart murmur as child Respiratory History: Reports: Asthma, Bronchitis, Recurrent Gastrointestinal History: Reports: Cholelithiasis 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: , 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 Musculoskeletal History: Reports: Back Pain, Chronic, Fibromyalgia Neurological History: Reports: Migraines Psychiatric History: Reports: Anxiety, Bipolar, Depression, Panic Attack, PTSD, Other (See Below) Other Psychiatric History: borderline multiplepersonality disorder Endocrine/Metabolic History: Reports: Diabetes, Type II, Obesity/BMI 30+ - Infectious Disease History Infectious Disease History: Reports: Chicken Pox, Influenza, MRSA, Other (See Below) Other Infectious Disease History: mssa - Past Surgical History HEENT Surgical History: Reports: Oral Surgery GI Surgical History: Reports: Bariatric Procedure, Cholecystectomy Other GI Surgeries/Procedures: GASTRIC SLEEVE 11/2012 Female Surgical History: Reports: D&C Musculoskeletal Surgical History: Reports: Arthroscopic Knee, Hip Replacement, Other (See Below) Other Musculoskeletal Surgeries/Procedures:: left knee ACL reconstruction Social & Family History - Family History Family Medical History: No Pertinent Family History - Tobacco Use Tobacco Use Status *Q: Never Tobacco User - Caffeine Use Caffeine Use: Reports: Coffee, Soda - Recreational Drug Use Recreational Drug Use: No Review of Systems - Review of Systems Review Of Systems: See Below Constitutional: Denies: Fever Respiratory: Reports: No Symptoms Cardiovascular: Reports: No Symptoms GI/Abdominal: Reports: No Symptoms Genitourinary: Reports: No Symptoms Skin: Reports: Other (Abrasion on the left knee) Neurological: Reports: Headache. Denies: Paresthesia ED EXAM, GENERAL - Physical Exam Exam: See Below Exam Limited By: No Limitations General Appearance: Alert, No Apparent Distress Head: Atraumatic Respiratory/Chest: No Respiratory Distress Extremities: Other (Patient has a superficial abrasion on the anterior aspect of the left knee, there is no effusion but there is palpable tenderness along the tibial plateau especially laterally. She also has tenderness to palpation in the gluteal area on the left side, pain with passive rotation of the left hip) Course - Vital Signs Last Recorded V/S: Last Vital Signs Temp 97.6 F 10/15/20 12:54 Pulse 92 10/15/20 12:54 Resp 18 10/15/20 12:54 BP 149/72 H 10/15/20 12:54 Pulse Ox 95 10/15/20 12:54 - Orders/Labs/Meds Orders: Active Orders 24 hr Category Date Time Status Hip Min 2V or 3V w Pelvis Lt [CR] Stat Exams 10/15/20 13:02 Taken Knee 3V Lt [CR] Stat Exams 10/15/20 13:02 Taken DME for Discharge [COMM] Stat Oth 10/15/20 13:32 Ordered Meds: Medications Discontinued Medications Generic Name Dose Route Start Last Admin Trade Name Charisse PRN Reason Stop Dose Admin Bacitracin 1 dose 10/15/20 13:32 10/15/20 13:37 Bacitracin Oint 1 Gm U/D Packet TOP 10/15/20 13:33 1 dose ONETIME ONE Administration - Re-Assessments/Exams Free Text/Narrative Re-Assessment/Exam: 10/15/20 13:07 A left hip and pelvis x-ray and left knee x-ray were obtained. 10/15/20 13:32 X-rays were negative for acute injury. A small amount of bacitracin and a bandage was applied to the abrasion on the knee and she was fitted with crutches. She should increase activity as tolerated and recheck later this week if not improving satisfactorily. Departure - Departure Time of Disposition: 13:54 Disposition: Home, Self-Care 01 Clinical Impression: Contusion of hip, left Qualifiers: Encounter type: initial encounter Qualified Code(s): S70.02XA - Contusion of left hip, initial encounter Contusion of left knee Qualifiers: Encounter type: initial encounter Qualified Code(s): S80.02XA - Contusion of left knee, initial encounter Abrasion of left knee Qualifiers: Encounter type: initial encounter Qualified Code(s): S80.212A - Abrasion, left knee, initial encounter - Discharge Information Instructions: Contusion, [id number] Referrals: Alexandria Trevizo CNM [Primary Care Provider] - Forms: ED Department Discharge Care Plan Goals: Use crutches to help with ambulation for the next few days and increase activity as tolerated. If still needing the crutches in 4 or 5 days, consider rechecking at the clinic. Ibuprofen or naproxen would be helpful. Sepsis Event Note (ED) - Evaluation Sepsis Screening Result: No Definite Risk - Focused Exam Vital Signs: Vital Signs Temp Pulse Resp BP Pulse Ox 10/15/20 12:54 97.6 F 92 18 149/72 H 95 10/15/20 12:48 97.6 F 92 18 149/72 H 95 - My Orders Last 24 Hours: My Active Orders 10/15/20 13:02 Hip Min 2V or 3V w Pelvis Lt [CR] Stat Knee 3V Lt [CR] Stat 10/15/20 13:32 DME for Discharge [COMM] Stat - Assessment/Plan Last 24 Hours: My Active Orders 10/15/20 13:02 Hip Min 2V or 3V w Pelvis Lt [CR] Stat Knee 3V Lt [CR] Stat 10/15/20 13:32 DME for Discharge [COMM] Stat
[2020-10-15] MEDS ORDERED: Bacitracin Oint 1 GM U/D Packet TOP ONE (13:32)
--- NOTE | 2020-10-16 12:13 | CR ---
Hip Min 2V or 3V w Pelvis Lt, CLINICAL HISTORY: Fall, pain FINDINGS: Patient has a total right hip arthroplasty. No fracture is identified in the left hip. There is some acetabular spurring. Pelvis appears intact IMPRESSION: Total right hip arthroplasty No fracture or dislocation in the left Acetabular spurring Knee 3V Lt CLINICAL HISTORY: Pain, fall FINDINGS: Patient has had previous anterior cruciate ligament repair. No acute fractures seen. There is periarticular and patellar spurring IMPRESSION: No acute fracture Osteoarthritic change
== END 2020-10-15 13:54 | disposition home or self-care (01) ==
LOC: JP.ED 12:29
DX: S70.02XA Contusion of left hip, initial encounter (principal); S80.02XA Contusion of left knee, initial encounter; J45.909 Unspecified asthma, uncomplicated; E11.9 Type 2 diabetes mellitus without complications; E66.9 Obesity, unspecified; Z68.41 Body mass index [BMI] 40.0-44.9, adult; Z88.8 Allergy status to other drugs, medicaments and biological substances; Z79.899 Other long term (current) drug therapy; Z98.890 Other specified postprocedural states; W00.1XXA Fall from stairs and steps due to ice and snow, initial encounter
CPT/HCPCS: 73502-26-LT; 73502-LT; 73562-26-LT; 73562-LT; 99283

== ENCOUNTER 2022-10-04 11:43 | Inpatient (IN) | payer MEDICAID ==
[2022-10-04] MEDS ORDERED: Sodium Chloride 0.9% 1,000 ML IV STA (12:31)
[2022-10-04] MEDS ORDERED: Sodium Chloride 0.9% 10 ML Syringe FLUSH PRN ×2 (12:31→13:11)
[2022-10-04] MEDS ORDERED: fentaNYL 100 MCG/2 ML SDV IVPUSH ONE (12:32)
[2022-10-04] MEDS ORDERED: Iopamidol 612 MG/ML 100 ML Bottle IV PRN (13:11)
[2022-10-04] MEDS ORDERED: Sodium Chloride 0.9% 50 ML IV ONE (13:11)
[2022-10-04 13:34] LABS: ESTIMATED GFR 49 mL/min (>60)
[2022-10-04 13:36] LABS: TROPONIN I HIGH SENSITIVITY < 4.0 pg/mL (<=60.3)
[2022-10-04] MEDS ORDERED: ESZOPICLONE 2 MG PO PRN (14:38)
[2022-10-04] MEDS ORDERED: Ondansetron 4 MG/2 ML SDV IVPUSH PRN (14:40)
[2022-10-04 15:32] LABS: CORONAVIRUS COVID-19 NAA NEGATIVE (NEGATIVE)
[2022-10-04] MEDS: Ampicillin/Sulbactam Na 3 GM in Sodium Chloride 0.9% 100 ML IV SCH ×2 (16:53→23:11)
[2022-10-04] MEDS: HYDROmorphone 0.5 MG/0.5 ML Syringe IVPUSH PRN ×2 (18:30→23:19)
[2022-10-04] MEDS: hydrOXYzine HCl 25 MG Tab PO SCH (20:59)
[2022-10-04] MEDS ORDERED: HYDROXYZINE HCL 10 MG/5 ML PO SCH (21:00)
[2022-10-05] MEDS: Lactated Ringers 1,000 ML IV SCH ×3 (00:25→22:34)
[2022-10-05] MEDS ORDERED: Bupivacaine 0.5%/EPINEPHrine 1:200,000 50 ML MDV ONE (06:50)
[2022-10-05] MEDS: Ampicillin/Sulbactam Na 3 GM in Sodium Chloride 0.9% 100 ML IV SCH ×2 (07:15→15:00)
[2022-10-05] MEDS ORDERED: fentaNYL 250 MCG/5 ML SDV ONE ×2 (07:19→08:01)
[2022-10-05] MEDS ORDERED: Rocuronium 50 MG/5 ML Vial ONE (07:20)
[2022-10-05] MEDS ORDERED: Dexamethasone 4 MG/ML SDV ONE (07:20)
[2022-10-05] MEDS ORDERED: Propofol 200 MG/20 ML SDV ONE (07:20)
[2022-10-05] MEDS ORDERED: Succinylcholine 200 MG/10 ML MDV ONE (07:20)
[2022-10-05] MEDS ORDERED: Ondansetron 4 MG/2 ML SDV ONE (07:20)
[2022-10-05] MEDS ORDERED: Neostigmine Methylsulfate 1 MG/ML 5 ML Syringe ONE (07:20)
[2022-10-05] MEDS ORDERED: Glycopyrrolate 0.2 MG/ML 5 ML MDV ONE (07:20)
[2022-10-05] MEDS ORDERED: Ketamine 17 MG in Sodium Chloride 0.9% 19.83 ML IV SCH (07:30)
[2022-10-05] MEDS ORDERED: Ketamine 500 MG/5 ML MDV IV SCH (07:30)
[2022-10-05] MEDS ORDERED: Sugammadex Sodium 200 MG/2 ML VIAL ONE (08:17)
[2022-10-05] MEDS ORDERED: Labetalol 20 MG/4 ML Syringe ONE (08:27)
[2022-10-05] MEDS: hydrOXYzine HCl 25 MG Tab PO SCH ×2 (11:19→20:46)
[2022-10-05] MEDS: HYDROmorphone 0.5 MG/0.5 ML Syringe IVPUSH PRN ×3 (11:19→16:41)
[2022-10-05] MEDS: Pantoprazole 40 MG Vial IV SCH (12:27)
[2022-10-05] MEDS: Acetaminophen 500 MG Tab PO SCH ×2 (14:55→20:46)
[2022-10-05] MEDS: Ibuprofen 600 MG Tab PO SCH ×2 (16:40→22:34)
[2022-10-05] MEDS: HYDROmorphone 2 MG Tab PO PRN (20:45)
[2022-10-06] MEDS: Ampicillin/Sulbactam Na 3 GM in Sodium Chloride 0.9% 100 ML IV SCH ×3 (00:13→15:09)
[2022-10-06] MEDS: HYDROmorphone 2 MG Tab PO PRN ×2 (01:33→20:31)
[2022-10-06] MEDS: Acetaminophen 500 MG Tab PO SCH ×4 (04:10→20:31)
[2022-10-06] MEDS: Ibuprofen 600 MG Tab PO SCH ×4 (04:11→22:18)
[2022-10-06] MEDS: Lactated Ringers 1,000 ML IV SCH (07:26)
[2022-10-06] MEDS ORDERED: Magnesium Hydroxide 400 MG/5 ML Susp 30 ML Cup PO ONE (08:30)
[2022-10-06] MEDS: hydrOXYzine HCl 25 MG Tab PO SCH ×2 (08:59→20:31)
[2022-10-06] MEDS: Pantoprazole 40 MG Vial IV SCH (11:04)
[2022-10-06] MEDS: Bisacodyl 5 MG Tab PO SCH ×2 (11:10→20:31)
[2022-10-06] MEDS: Enoxaparin 40 MG/0.4 ML Syringe SUBCUT SCH (15:07)
[2022-10-07] MEDS: Ampicillin/Sulbactam Na 3 GM in Sodium Chloride 0.9% 100 ML IV SCH ×2 (00:27→07:24)
[2022-10-07] MEDS: Acetaminophen 500 MG Tab PO SCH ×2 (03:54→08:08)
[2022-10-07] MEDS: Ibuprofen 600 MG Tab PO SCH (04:00)
[2022-10-07 07:21] VITALS: BP 119/67; PULSE 84
[2022-10-07] MEDS: Bisacodyl 5 MG Tab PO SCH (08:07)
[2022-10-07] MEDS: hydrOXYzine HCl 25 MG Tab PO SCH (08:07)
[2022-10-07] MEDS: Enoxaparin 40 MG/0.4 ML Syringe SUBCUT SCH (08:16)
[2022-10-07] MEDS: HYDROmorphone 2 MG Tab PO PRN (08:59)
[2022-10-07] MEDS: Pantoprazole 40 MG Vial IV SCH (09:32)
== END 2022-10-07 10:08 | disposition home or self-care (01) | DRG 338 ==
LOC: JP.ED 11:43 → JP.MS 14:35 → OBSVTOIN 10-06 11:30
PROVIDERS: ADMIT Surgery; ATTEND Surgery
PROC: 0DTJ4ZZ Resection of Appendix, Percutaneous Endoscopic Approach (ICD-10-PCS; principal; 2022-10-05)
DX: K35.33 Acute appendicitis with perforation, localized peritonitis, and gangrene, with abscess (principal); K65.8 Other peritonitis; N17.9 Acute kidney failure, unspecified; H54.7 Unspecified visual loss; J45.909 Unspecified asthma, uncomplicated; G89.29 Other chronic pain; M54.9 Dorsalgia, unspecified; M79.7 Fibromyalgia; G43.909 Migraine, unspecified, not intractable, without status migrainosus; F41.9 Anxiety disorder, unspecified; F31.9 Bipolar disorder, unspecified; Z96.649 Presence of unspecified artificial hip joint; Z20.822 Contact with and (suspected) exposure to COVID-19; F43.10 Post-traumatic stress disorder, unspecified; F41.0 Panic disorder [episodic paroxysmal anxiety]; F60.3 Borderline personality disorder; E11.9 Type 2 diabetes mellitus without complications; E66.9 Obesity, unspecified; Z90.49 Acquired absence of other specified parts of digestive tract; Z98.84 Bariatric surgery status; Z88.8 Allergy status to other drugs, medicaments and biological substances; Z79.82 Long term (current) use of aspirin; Z79.899 Other long term (current) drug therapy; Z98.890 Other specified postprocedural states; Z68.36 Body mass index [BMI] 36.0-36.9, adult
CPT/HCPCS: 0241U; 36415; 74177; 74177-26; 80053; 83605; 83690; 84484; 85025; 87070; 87075; 87077; 87186; 87205; 88304; 96361; 96365; 96366; 96367; 96374; 96375; 96376; 99285; 99285-25; A9270-GY; C9113; G0378; J0131; J0171; J0295; J0330; J1100; J1170; J1650; J2405; J2704; J2710; J2795; J3010; J3490; J7030; J7120; Q9967

== ENCOUNTER 2023-06-07 11:18 | Emergency (ER) | payer MEDICAID ==
[2023-06-07 11:34] VITALS: BP 134/92; PULSE 107
[2023-06-07 11:49] LABS: APPEARANCE,URINE CLOUDY (CLEAR); BILIRUBIN,URINE SMALL (NEGATIVE); COLOR,URINE YELLOW (YELLOW); GLUCOSE,URINE NEGATIVE (NEGATIVE); KETONES,URINE NEGATIVE (NEGATIVE); LEUKOCYTE ESTERASE,URINE SMALL (NEGATIVE); NITRITE,URINE NEGATIVE (NEGATIVE); OCCULT BLOOD,URINE MODERATE (NEGATIVE); PROTEIN,URINE 100 mg/dL (NEGATIVE); UROBILINOGEN,URINE 0.2 EU/dL (0.2-1.0)
[2023-06-07 11:54] LABS: AMORPHOUS SEDIMENT,URINE NOT SEEN; BACTERIA,URINE MANY; EPITHELIAL CELLS,URINE MANY; MUCUS,URINE MANY; RBC,URINE 20-30 (0-5); WBC,URINE 30-40 (0-5)
== END 2023-06-07 12:37 | disposition home or self-care (01) ==
LOC: JP.ED 11:18
DX: N39.0 Urinary tract infection, site not specified (principal); E11.9 Type 2 diabetes mellitus without complications; E66.9 Obesity, unspecified; Z68.30 Body mass index [BMI] 30.0-30.9, adult; Z88.8 Allergy status to other drugs, medicaments and biological substances; Z79.82 Long term (current) use of aspirin; Z79.84 Long term (current) use of oral hypoglycemic drugs; Z79.899 Other long term (current) drug therapy
CPT/HCPCS: 81001; 87086; 99284

== ENCOUNTER 2024-04-06 09:06 | Emergency (ER) | payer MEDICAID ==
[2024-04-06 09:29] LABS: BASOPHILS PERCENT AUTO 0.4 % (0.1-1.3); EOSINOPHILS PERCENT AUTO 4.1 % (0.0-5.4); HEMATOCRIT 37.9 % (34.3-46.0); IMMATURE GRAN PERCENT AUTO 0.2 % (0.0-0.7); LYMPHOCYTES ABSOLUTE AUTO 1.73 K/uL (0.8-3.3); LYMPHOCYTES PERCENT AUTO 35.7 % (11.4-47.7); MEAN CORPUSCULAR HEMOGLOBIN 30.7 pg (31.6-35.5); MEAN CORPUSCULAR HGB CONC 34.3 g/dL (31.6-35.5); MEAN CORPUSCULAR VOLUME 89.4 fL (81.4-99.0); MONOCYTES ABSOLUTE AUTO 0.36 K/uL (0.20-0.90); MONOCYTES PERCENT AUTO 7.4 % (3.3-12.6); NEUTROPHILS ABSOLUTE AUTO 2.52 K/uL (1.0-7.6); NEUTROPHILS PERCENT AUTO 52.2 % (40.0-78.1); PLATELET COUNT,PLT 235 K/uL (130-375); RED BLOOD CELL COUNT 4.24 M/uL (3.77-5.24); WHITE BLOOD CELL COUNT,WBC 4.8 K/uL (3.2-11.0)
[2024-04-06 09:34] LABS: BASOPHILS ABSOLUTE AUTO 0.02 K/uL (0.00-0.10); IMMATURE GRAN ABSOLUTE AUTO 0.01 K/uL (0.00-0.23)
[2024-04-06 09:48] LABS: ALANINE AMINOTRANSFERASE,ALT 44 U/L (12-78); ALBUMIN 3.7 g/dL (3.4-5.0); ALKALINE PHOSPHATASE 54 U/L (46-116); ASPARTATE AMNIOTRANSFERASE,AST 109 U/L (15-37); BLOOD UREA NITROGEN,BUN 7 mg/dL (7-18); CARBON DIOXIDE,CO2 28 mmol/L (21-32); CHLORIDE,CL 102 mmol/L (100-108); CREATININE 1.1 mg/dL (0.6-1.0); ESTIMATED GFR 59 mL/min (>60); GLUCOSE RANDOM 98 mg/dL (74-106); POTASSIUM,K 3.3 mmol/L (3.6-5.2); PROTEIN TOTAL,TP 7.3 g/dL (6.4-8.2); SODIUM,NA 140 mmol/L (140-148)
[2024-04-06 09:51] LABS: ANION GAP 13.3 mmol/L (5.0-14.0)
[2024-04-06] MEDS: HYDROmorphone 0.5 MG/0.5 ML Syringe IVPUSH ONE (09:55)
[2024-04-06 10:05] VITALS: BP 142/72; PULSE 72
== END 2024-04-06 12:53 | disposition home or self-care (01) ==
LOC: JP.ED 09:06
DX: R07.89 Other chest pain (principal); J45.909 Unspecified asthma, uncomplicated; E11.9 Type 2 diabetes mellitus without complications; E66.9 Obesity, unspecified; Z79.899 Other long term (current) drug therapy; Z79.82 Long term (current) use of aspirin; Z88.1 Allergy status to other antibiotic agents; Z68.29 Body mass index [BMI] 29.0-29.9, adult
CPT/HCPCS: 36415; 71045; 80053; 84484; 85025; 85379; 93005; 96374; 99285; J1170